=== PATIENT | female | born 1945 | race Caucasian/White ===

== ENCOUNTER 2022-06-18 21:03 | Inpatient (IN) | payer OTHER ==
[~2022-06-18] VITALS: Ht 152.4 cm; Wt 50.5 kg
[2022-06-18] MEDS ORDERED: PANTOPRAZOLE 40 MG TAB PO ONE (22:00)
[2022-06-18] MEDS ORDERED: ACETAMINOPHEN 325 MG TAB PO ONE (22:00)
[2022-06-18] MEDS ORDERED: cefTRIAXone 1GM/50ML D5W 50 ML IV ONE (22:00)
[2022-06-18 22:16] LABS: Basophils # (auto) 0 10 ^3/uL (0-0.2); Eosinophils # (auto) 0 10 ^3/uL (0-0.8); Eosinophils % (auto) 0.5 % (0.0-7.0); Neutrophils # (auto) 4.8 10 ^3/uL (1.6-8.6); Nucleated Red Blood Cells % 0.1 %
[2022-06-18 22:17] LABS: Basophils % (auto) 0.6 % (0.0-2.0); Hematocrit 21.4 % (36.0-46.0); Lymphocytes % (auto) 14.5 % (10.0-50.0); Mean Corpuscular Hemoglobin 20.8 pg (28.0-32.0); Mean Corpuscular Hgb Conc. 30.9 g/dL (32.0-36.0); Mean Corpuscular Volume 67.3 fL (80.0-100.0); Monocytes % (auto) 14.7 % (0.0-12.0); Neutrophils % (auto) 69.7 % (37.0-80.0); Red Blood Cells 3.18 10^6/uL (4.0-5.20); Red Cell Distribution Width 16.9 % (11.8-14.3); White Blood Cell 6.9 10^3/uL (4.4-10.8)
[2022-06-18 22:30] LABS: Albumin 3.5 g/dL (3.4-5.0); Calcium 8.9 mg/dL (8.5-10.1); Potassium 3.3 mmol/L (3.5-5.1)
[2022-06-18 22:34] LABS: BUN/Creatinine Ratio 13.4; Bilirubin, Total 0.7 mg/dL (0.2-1.0); Total Protein 7.3 g/dL (6.4-8.2)
[2022-06-18 22:35] LABS: Hemoglobin 6.6 g/dL (12.2-16.2)
[2022-06-18 22:51] LABS: INR 1.08 (0.9-1.15); Partial Thromboplastin Time 26.3 sec (24.6-33.4)
[2022-06-19] VITALS (10 sets, daily range): BP systolic 113–158; BP diastolic 35–71
[2022-06-19] MEDS ORDERED: ONDANSETRON HCL 4 MG/2 ML VIAL IV PRN
[2022-06-19] MEDS ORDERED: MORPHINE SULFATE INJ 2 MG/ml SYRG IV PRN
[2022-06-19] MEDS ORDERED: DOCUSATE SOD 100 MG CAP PO PRN
[2022-06-19] MEDS ORDERED: NITROGLYCERIN 0.4 MG SL TAB SL PRN
[2022-06-19 01:43] LABS: Urine Bacteria FEW /hpf (None Seen); Urine Blood TRACE /uL (Negative); Urine WBC 247 /hpf (0 - 5); Urine WBC Clumps PRESENT /hpf (None Seen)
[2022-06-19] MEDS ORDERED: FLUO1TAB14 PO (05:01)
[2022-06-19] MEDS ORDERED: ARIP2TAB PO (05:01)
[2022-06-19] MEDS ORDERED: LAMO100T44 PO ×2 (05:45→05:59)
[2022-06-19] MEDS ORDERED: LAMO25TA27 PO (05:50)
[2022-06-19 07:53] LABS: Basophils # (auto) 0 10 ^3/uL (0-0.2); Basophils % (auto) 0.6 % (0.0-2.0); Eosinophils # (auto) 0 10 ^3/uL (0-0.8); Eosinophils % (auto) 0.2 % (0.0-7.0); Hematocrit 25.9 % (36.0-46.0); Lymphocytes # (auto) 0.8 10 ^3/uL (0.4-5.4); Lymphocytes % (auto) 16.8 % (10.0-50.0); Mean Corpuscular Hemoglobin 22.3 pg (28.0-32.0); Mean Corpuscular Hgb Conc. 30.9 g/dL (32.0-36.0); Mean Corpuscular Volume 72.3 fL (80.0-100.0); Monocytes # (auto) 0.8 10 ^3/uL (0-1.3); Monocytes % (auto) 15.6 % (0.0-12.0); Neutrophils # (auto) 3.4 10 ^3/uL (1.6-8.6); Neutrophils % (auto) 66.8 % (37.0-80.0); Nucleated Red Blood Cells % 0.1 %; Red Blood Cells 3.58 10^6/uL (4.0-5.20); Red Cell Distribution Width 19.8 % (11.8-14.3)
[2022-06-19 08:09] LABS: Calcium 8.8 mg/dL (8.5-10.1); Potassium 3.5 mmol/L (3.5-5.1)
[2022-06-19 08:15] LABS: Albumin 3.4 g/dL (3.4-5.0); BUN/Creatinine Ratio 13.3; Bilirubin, Total 0.8 mg/dL (0.2-1.0); Total Protein 6.6 g/dL (6.4-8.2)
[2022-06-19] MEDS: ACETAMINOPHEN 325 MG TAB PO PRN ×2 (08:53→18:21)
[2022-06-19] MEDS: LEVOTHYROXINE SODIUM 25 MCG TAB PO SCH (08:53)
[2022-06-19] MEDS ORDERED: ARIPIPRAZOLE PO SCH (10:00)
[2022-06-19] MEDS ORDERED: ENOXAPARIN SOD 30 MG/0.3 ML SYRINGE SC SCH (10:00)
[2022-06-19] MEDS: PANTOPRAZOLE 40 MG/10 ML VIAL INJ IV SCH ×2 (10:29→21:11)
[2022-06-19] MEDS: MULTIPLE VITAMIN TAB PO SCH (10:29)
[2022-06-19] MEDS ORDERED: CHOLECALCIFEROL (VITD3) 2,000 UNIT CAP/TAB PO ONE (11:30)
[2022-06-19] MEDS ORDERED: ZINC SULFATE 220mg CAP or TAB PO ONE (11:30)
[2022-06-19] MEDS ORDERED: ASCORBIC ACID 500 MG TAB PO ONE (11:30)
[2022-06-19] MEDS: SODIUM CHLORIDE 0.9% 1,000 ML IV SCH ×2 (17:43)
[2022-06-19] MEDS: cefTRIAXone 1GM/50ML D5W 50 ML IV SCH (21:12)
[2022-06-19] MEDS: ARIPIPRAZOLE 2 MG TAB PO SCH (21:12)
[2022-06-19] MEDS: FLUoxetine HCL 20 MG CAP PO SCH (21:12)
[2022-06-19] MEDS: lamoTRIgine 25 MG TAB PO SCH (21:12)
[2022-06-19] MEDS: HYDROcodone-ACET 5/325MG TAB PO PRN (21:19)
[2022-06-20 05:00] VITALS: BP 122/49
[2022-06-20] MEDS: LEVOTHYROXINE SODIUM 25 MCG TAB PO SCH (06:15)
[2022-06-20 07:06] LABS: Basophils # (auto) 0 10 ^3/uL (0-0.2); Eosinophils # (auto) 0.1 10 ^3/uL (0-0.8); Hemoglobin 7.6 g/dL (12.2-16.2); Lymphocytes # (auto) 1.2 10 ^3/uL (0.4-5.4); Mean Corpuscular Volume 71.5 fL (80.0-100.0); Neutrophils # (auto) 2.3 10 ^3/uL (1.6-8.6)
[2022-06-20 07:10] LABS: Basophils % (auto) 0.6 % (0.0-2.0); Eosinophils % (auto) 1.2 % (0.0-7.0); Hematocrit 24.6 % (36.0-46.0); Lymphocytes % (auto) 27.3 % (10.0-50.0); Mean Corpuscular Hemoglobin 22.1 pg (28.0-32.0); Mean Corpuscular Hgb Conc. 30.9 g/dL (32.0-36.0); Monocytes # (auto) 0.7 10 ^3/uL (0-1.3); Monocytes % (auto) 16.9 % (0.0-12.0); Nucleated Red Blood Cells % 0.3 %; Red Blood Cells 3.44 10^6/uL (4.0-5.20); White Blood Cell 4.4 10^3/uL (4.4-10.8)
[2022-06-20 07:20] LABS: Potassium 3.3 mmol/L (3.5-5.1)
[2022-06-20 07:33] LABS: BUN/Creatinine Ratio 10.8; Calcium 8.5 mg/dL (8.5-10.1); Magnesium 2.1 mg/dL (1.6-2.6)
[2022-06-20 08:00] VITALS: BP 111/67
[2022-06-20 08:08] VITALS: BP 111/67
[2022-06-20] MEDS ORDERED: POTASSIUM CHL 20 Meq TABLET PO ONE (09:30)
[2022-06-20] MEDS: SODIUM CHLORIDE 0.9% 1,000 ML IV SCH (11:18)
[2022-06-20] MEDS: PANTOPRAZOLE 40 MG/10 ML VIAL INJ IV SCH ×2 (11:18→20:56)
[2022-06-20] MEDS: CHOLECALCIFEROL (VITD3) 2,000 UNIT CAP/TAB PO SCH (11:19)
[2022-06-20] MEDS: MULTIPLE VITAMIN TAB PO SCH (11:19)
[2022-06-20] MEDS: ASCORBIC ACID 500 MG TAB PO SCH (11:19)
[2022-06-20] MEDS: ZINC SULFATE 220mg CAP or TAB PO SCH (11:19)
[2022-06-20 13:03] VITALS: BP 124/52
[2022-06-20] MEDS: ACETAMINOPHEN 325 MG TAB PO PRN (14:50)
[2022-06-20 17:00] VITALS: BP 124/34
[2022-06-20] MEDS: cefTRIAXone 1GM/50ML D5W 50 ML IV SCH (20:56)
[2022-06-20] MEDS: ARIPIPRAZOLE 2 MG TAB PO SCH (20:56)
[2022-06-20] MEDS: lamoTRIgine 25 MG TAB PO SCH (20:56)
[2022-06-20] MEDS: FLUoxetine HCL 20 MG CAP PO SCH (20:57)
[2022-06-20 22:00] VITALS: BP 138/66
[2022-06-21] VITALS (8 sets, daily range): BP systolic 141–162; BP diastolic 49–96
[2022-06-21] MEDS: SODIUM CHLORIDE 0.9% 1,000 ML IV SCH (02:00)
[2022-06-21] MEDS ORDERED: guaiFENesin-DM 100/10mg/5ml SYR PO PRN (03:30)
[2022-06-21 06:22] LABS: Basophils # (auto) 0 10 ^3/uL (0-0.2); Eosinophils # (auto) 0.1 10 ^3/uL (0-0.8); Hemoglobin 7.2 g/dL (12.2-16.2); Lymphocytes # (auto) 1.2 10 ^3/uL (0.4-5.4); Monocytes # (auto) 0.6 10 ^3/uL (0-1.3); Nucleated Red Blood Cells % 0.1 %
[2022-06-21] MEDS: LEVOTHYROXINE SODIUM 25 MCG TAB PO SCH (06:23)
[2022-06-21 06:27] LABS: Basophils % (auto) 0.7 % (0.0-2.0); Eosinophils % (auto) 2.7 % (0.0-7.0); Hematocrit 22.5 % (36.0-46.0); Lymphocytes % (auto) 28.9 % (10.0-50.0); Mean Corpuscular Hemoglobin 22.4 pg (28.0-32.0); Mean Corpuscular Hgb Conc. 31.9 g/dL (32.0-36.0); Mean Corpuscular Volume 70.1 fL (80.0-100.0); Monocytes % (auto) 15.8 % (0.0-12.0); Neutrophils # (auto) 2.1 10 ^3/uL (1.6-8.6); Neutrophils % (auto) 51.9 % (37.0-80.0); Potassium 3.3 mmol/L (3.5-5.1); Red Blood Cells 3.21 10^6/uL (4.0-5.20)
[2022-06-21 06:35] LABS: BUN/Creatinine Ratio 12.7; Calcium 8.4 mg/dL (8.5-10.1); Magnesium 2.1 mg/dL (1.6-2.6)
[2022-06-21 06:42] LABS: Red Cell Distribution Width 20.1 % (11.8-14.3)
[2022-06-21] MEDS ORDERED: POTASSIUM CHL 20 Meq TABLET PO ONE (09:30)
[2022-06-21] MEDS: PANTOPRAZOLE 40 MG/10 ML VIAL INJ IV SCH ×2 (11:12→22:40)
[2022-06-21] MEDS: ZINC SULFATE 220mg CAP or TAB PO SCH (11:12)
[2022-06-21] MEDS: ASCORBIC ACID 500 MG TAB PO SCH (11:12)
[2022-06-21] MEDS: MULTIPLE VITAMIN TAB PO SCH (11:12)
[2022-06-21] MEDS: CHOLECALCIFEROL (VITD3) 2,000 UNIT CAP/TAB PO SCH (11:12)
[2022-06-21] MEDS: FLUoxetine HCL 20 MG CAP PO SCH (22:09)
[2022-06-21] MEDS: lamoTRIgine 25 MG TAB PO SCH (22:09)
[2022-06-21] MEDS: ARIPIPRAZOLE 2 MG TAB PO SCH (22:09)
[2022-06-21] MEDS: cefTRIAXone 1GM/50ML D5W 50 ML IV SCH (22:40)
[2022-06-22] MEDS: HYDROcodone-ACET 5/325MG TAB PO PRN (00:54)
[2022-06-22 05:00] VITALS: BP 136/53
[2022-06-22 06:04] LABS: Basophils # (auto) 0 10 ^3/uL (0-0.2); Eosinophils # (auto) 0.2 10 ^3/uL (0-0.8); Eosinophils % (auto) 4.6 % (0.0-7.0); Monocytes # (auto) 0.5 10 ^3/uL (0-1.3); Neutrophils # (auto) 1.5 10 ^3/uL (1.6-8.6); Nucleated Red Blood Cells % 0.1 %; Red Blood Cells 4.07 10^6/uL (4.0-5.20)
[2022-06-22 06:07] LABS: Basophils % (auto) 0.6 % (0.0-2.0); Hematocrit 28.8 % (36.0-46.0); Hemoglobin 9.1 g/dL (12.2-16.2); Lymphocytes # (auto) 1.7 10 ^3/uL (0.4-5.4); Lymphocytes % (auto) 42.8 % (10.0-50.0); Mean Corpuscular Hemoglobin 22.4 pg (28.0-32.0); Mean Corpuscular Hgb Conc. 31.6 g/dL (32.0-36.0); Mean Corpuscular Volume 70.8 fL (80.0-100.0); Monocytes % (auto) 13.1 % (0.0-12.0); Neutrophils % (auto) 38.9 % (37.0-80.0); White Blood Cell 3.9 10^3/uL (4.4-10.8)
[2022-06-22] MEDS: LEVOTHYROXINE SODIUM 25 MCG TAB PO SCH (06:10)
[2022-06-22 06:22] LABS: BUN/Creatinine Ratio 12.9; Calcium 8.6 mg/dL (8.5-10.1); Potassium 3.6 mmol/L (3.5-5.1)
[2022-06-22 07:02] LABS: Red Cell Distribution Width 20.9 % (11.8-14.3)
[2022-06-22] MEDS ORDERED: LIDOCAINE VISCOUS 2% 15ML UD ONE (08:47)
[2022-06-22] MEDS ORDERED: SODIUM CHLORIDE LOCK 10 ML ONE (08:47)
[2022-06-22] MEDS ORDERED: diphenhdrAMINE HCL 50 MG/1 ML VL ONE (08:48)
[2022-06-22 09:22] VITALS: BP 138/46
[2022-06-22] MEDS: fentaNYL CITRATE 100 MCG/2 ML VL ONE ×2 (09:38→09:43)
[2022-06-22] MEDS: MIDAZOLAM HCL 5 MG/ML-1ML VIAL ONE ×2 (09:38→09:43)
[2022-06-22] MEDS ORDERED: PANT40TA2 PO (10:44)
[2022-06-22] MEDS ORDERED: CIPR250T3 PO (10:44)
[2022-06-22] MEDS ORDERED: ASCO500T11 PO (10:45)
[2022-06-22] MEDS ORDERED: ZINC220C10 PO (10:45)
[2022-06-22] MEDS ORDERED: CHOL1CAP47 PO (10:45)
[2022-06-22] MEDS: ZINC SULFATE 220mg CAP or TAB PO SCH (11:45)
[2022-06-22] MEDS: ASCORBIC ACID 500 MG TAB PO SCH (11:45)
[2022-06-22] MEDS: MULTIPLE VITAMIN TAB PO SCH (11:45)
[2022-06-22] MEDS: PANTOPRAZOLE 40 MG/10 ML VIAL INJ IV SCH (11:45)
[2022-06-22] MEDS: CHOLECALCIFEROL (VITD3) 2,000 UNIT CAP/TAB PO SCH (11:46)
[2022-06-22 12:43] VITALS: BP 160/65
[2022-06-22 15:52] LABS: Basophils # (auto) 0 10 ^3/uL (0-0.2); Eosinophils # (auto) 0.2 10 ^3/uL (0-0.8); White Blood Cell 5.1 10^3/uL (4.4-10.8)
[2022-06-22 15:58] LABS: Basophils % (auto) 0.7 % (0.0-2.0); Eosinophils % (auto) 3.3 % (0.0-7.0); Hematocrit 33.7 % (36.0-46.0); Hemoglobin 10.5 g/dL (12.2-16.2); Lymphocytes # (auto) 1.8 10 ^3/uL (0.4-5.4); Mean Corpuscular Hemoglobin 22.2 pg (28.0-32.0); Mean Corpuscular Hgb Conc. 31.2 g/dL (32.0-36.0); Mean Corpuscular Volume 71.1 fL (80.0-100.0); Monocytes # (auto) 0.6 10 ^3/uL (0-1.3); Monocytes % (auto) 12.5 % (0.0-12.0); Neutrophils # (auto) 2.5 10 ^3/uL (1.6-8.6); Neutrophils % (auto) 48.5 % (37.0-80.0); Nucleated Red Blood Cells % 0.3 %; Red Blood Cells 4.73 10^6/uL (4.0-5.20)
[2022-06-22 16:04] LABS: Red Cell Distribution Width 20.5 % (11.8-14.3)
== END 2022-06-22 16:30 | disposition home or self-care (01) | DRG 377 ==
LOC: ER 21:03 → TELE 23:51 → TELE-WESTW 06-19 08:27
PROVIDERS: ADMIT Nurse Practitioner Family; ATTEND Internal Medicine Geriatric Medicine
PROC: 30233N1 Transfusion of Nonautologous Red Blood Cells into Peripheral Vein, Percutaneous Approach (ICD-10-PCS; principal; 2022-06-19)
PROC: 0DJ08ZZ Inspection of Upper Intestinal Tract, Via Natural or Artificial Opening Endoscopic (ICD-10-PCS; 2022-06-22)
DX: K57.91 Diverticulosis of intestine, part unspecified, without perforation or abscess with bleeding (principal); J18.9 Pneumonia, unspecified organism; J96.00 Acute respiratory failure, unspecified whether with hypoxia or hypercapnia; U07.1 COVID-19; N39.0 Urinary tract infection, site not specified; J98.11 Atelectasis; K44.9 Diaphragmatic hernia without obstruction or gangrene; D64.9 Anemia, unspecified; E87.6 Hypokalemia; I10 Essential (primary) hypertension; F31.9 Bipolar disorder, unspecified; E03.9 Hypothyroidism, unspecified; K80.20 Calculus of gallbladder without cholecystitis without obstruction
CPT/HCPCS: 36415; 36430; 74176; 80048; 80053; 81001; 82270; 83735; 85025; 85610; 85730; 86850; 86900; 86901; 86920; 87040; 87086; 87426; 87804; 93005; 96365; 96372; 99291; C9113; G0378; J0696; J2250